=== PATIENT | male | born 1980 | race Hispanic/Latino ===

== ENCOUNTER 2024-10-29 07:25 | Observation (INO) | payer OTHER ==
[~2024-10-29] VITALS: Ht 185.4 cm; Wt 90.3 kg
[2024-10-29 07:52] LABS: APPEARANCE,URINE CLOUDY (CLEAR); GLUCOSE, URINE (UA) NEGATIVE (NEGATIVE); LEUKOCYTE ESTERASE ,URINE NEGATIVE Leu/uL (NEGATIVE); NITRATE,URINE NEGATIVE (NEGATIVE); OCCULT BLOOD,URINE NEGATIVE (NEGATIVE)
[2024-10-29] MEDS: FAMOTIDINE 20MG VIAL IV ONE (07:56)
[2024-10-29 07:59] LABS: IMMATURE GRANULOCYTE ABSOLUTE 0.03 K/uL (0-1); NUCLEATED RED BLOOD CELLS 0.0 % (0.0-0.19); PLATELET COUNT (AUTO) 254 K/uL (130-400); RED BLOOD CELL COUNT(AUTO) 5.40 MIL/uL (4.50-6.20); RED CELL DISTRIBUTION WIDTH 12.5 % (11.0-15.5); WHITE BLOOD COUNT (AUTO) 8.7 K/uL (4.8-10.8)
[2024-10-29] MEDS: 0.9%NACL 1000ML 1,000 ML IV ONE (08:04)
[2024-10-29 08:05] LABS: UNCLASSIFIED CRYSTAL 2 /HPF (None Seen)
[2024-10-29 08:11] LABS: INR 1.04 (0.85-1.15)
[2024-10-29 08:14] LABS: ASPARTATE AMINOTRANSFERASE 16.0 U/L (10-37); CREATININE 0.7 mg/dL (0.5-1.3); GLOMERULAR FILTR. RATE CALC 117.0 mL/min (>90); GLUCOSE,RANDOM 108.0 mg/dL (70-105); SODIUM SERUM 138.0 mmol/L (136-145); TOTAL PROTEIN, SERUM 6.9 g/dL (6.0-8.3); UREA NITROGEN, BLOOD 8.0 mg/dL (7-18)
[2024-10-29] MEDS ORDERED: IOHEXOL-350 75 ML VIAL IV ONE (08:49)
--- NOTE | 2024-10-29 10:07 | HMCIMG ---
EXAM: CT Abdomen and Pelvis with and without IV contrast CLINICAL HISTORY: RUQ and epigastric pain TECHNIQUE: Axial computed tomography images of the abdomen and pelvis with and without intravenous contrast. CONTRAST: with and without intravenous contrast. COMPARISON: None provided. FINDINGS: LUNG BASES: The lung bases appear clear. No pleural effusions are seen. LIVER: Unremarkable. GALLBLADDER AND BILE DUCTS: Dilated GB measuring 12.6x 4.2 cms with a calculus measuring 22 x 12 mm in the region of the neck. No adjacent fluid collection. No biliary ductal dilatation is evident. PANCREAS: Unremarkable. SPLEEN: Unremarkable. ADRENAL GLANDS: Unremarkable. KIDNEYS, URETERS, AND BLADDER: The kidneys sizes appear within normal limits. There is no hydronephrosis or hydroureter. A tiny 2mm calculus in the upper calyx of the right kidney. STOMACH AND BOWEL: Unremarkable appearance of the stomach and bowel. No evidence of bowel obstruction. No evidence suggesting enteritis or colitis. APPENDIX: No evidence of acute appendicitis on CT examination. PERITONEUM: No free fluid. No free air. LYMPH NODES: No lymphadenopathy is evident. REPRODUCTIVE: Prostate calcifications are evident. Mild prostatic hypertrophy. VASCULATURE: No evidence of abdominal aortic aneurysm. BONES: No aggressive appearing osseous lesion. No acute osseous pathology evident. IMPRESSION: Dilated gallbladder measuring 12.6x 4.2 cms with a calculus measuring 22 x 12 mm in the region of the neck, probably impacted. Recommend ultrasound correlation. Tiny right renal calculus. /Megan
--- NOTE | 2024-10-29 10:15 | HMCIMG ---
EXAM: US Abdomen, Right Upper Quadrant. CLINICAL HISTORY: Presents with right upper quadrant pain TECHNIQUE: Right upper quadrant sonography performed with image documentation. COMPARISON: Ultrasound of the abdomen dated 03/21/2016 FINDINGS: LIVER: Enlarged in size measuring 16.7 cm with increased echogenicity. Hepatopetal flow in the main portal vein. Measuring 24 cm/sec. GALLBLADDER: Calculus measuring 1.2 cm in the neck of the gallbladder. The gallbladder is distended, measuring up to 12.0 cm. Currently there is normal wall thickness of 0.2 cm. No pericholecystic free fluid. COMMON BILE DUCT: No dilation. Measures 5 mm PANCREAS: The visualized pancreas appears within normal limits. The distal pancreas is obscured by bowel gas. RIGHT KIDNEY: Measures 12.3 x 4.4 x 5.6 cm in craniocaudal, jacqueline-posterior and transverse dimensions Unremarkable. Normal renal contours. No hydronephrosis. Calculus measuring 3.3 mm in the mid calyx of right kidney. IMPRESSION: Impacted gallstone with markedly distended gallbladder, concerning for early acute cholecystitis. Recommend a hepatobiliary (HIDA) scan for further evaluation. Hepatomegaly with features of hepatic steatosis. Right renal calculus. /Megan
--- NOTE | 2024-10-29 10:27 | ERN ---
General Chief Complaint: Abdominal Pain Stated Complaint: ABDOMINAL PAIN Time Seen by MD: 07:26 History of Present Illness Initial Comments 44-year-old male came in for right upper quadrant pain started earlier today. Patient otherwise has no concerns. Allergies: Coded Allergies: No Known Drug Allergies (Unverified Allergy, Unknown, 10/29/24) Past Medical History Past Medical History: No Pertinent History Past Surgical History: None ROS Dictation Abdominal pain Physical Exam Physical Exam Dictation That has tenderness on palpation in right upper quadrant with no rebound tenderness. Results Laboratory and Microbiology Lab and Micro Result Laboratory Tests Test 10/29/24 07:42 10/29/24 07:50 Urine Color YELLOW (YELLOW) Urine Appearance CLOUDY (CLEAR) H Urine pH 8.0 (5.0-8.0) Urine Specific [place] 1.026 (1.001-1.031) Urine Protein NEGATIVE mg/dL (NEGATIVE) Urine Glucose (UA) NEGATIVE mg/dL (NEGATIVE) Urine Ketones NEGATIVE mg/dL (NEGATIVE) Urine Occult Blood NEGATIVE (NEGATIVE) Urine Nitrate NEGATIVE (NEGATIVE) Urine Bilirubin NEGATIVE mg/dL (NEGATIVE) Urine Urobilinogen 0.2 mg/dL (0.2-1.0) Urine Leukocyte Esterase NEGATIVE Michael/uL Urine RBC 6-10 /HPF (0-1) H Urine WBC 0-1 /HPF (0-1) Urine Other Crystals (Auto) 2 /HPF (None Seen) Urine Amorphous Crystals (Auto) RARE /LPF (None Seen) Urine Bacteria RARE /HPF (None Seen) White Blood Count 8.7 K/uL (4.8-10.8) Red Blood Count 5.40 MIL/uL (4.50-6.20) Hemoglobin 16.1 g/dL (14.0-18.0) Hematocrit 46.7 % (42-54) Mean Corpuscular Volume 86.5 fL (79-99) Mean Corpuscular Hemoglobin 29.8 pg (27.0-33.0) Mean Corpuscular Hemoglobin Concent 34.5 g/dL (32.0-36.0) Red Cell Distribution Width 12.5 % (11.0-15.5) Platelet Count 254 K/uL (130-400) Mean Platelet Volume 9.7 fL (7.5-10.5) Immature Granulocyte % (Auto) 0.3 % (0-1) Neutrophils (%) (Auto) 83.2 % (40.0-77.0) H Lymphocytes (%) (Auto) 11.4 % (21.0-51.0) L Monocytes (%) (Auto) 4.6 % (3.0-13.0) Eosinophils (%) (Auto) 0.2 % (0.0-8.0) Basophils (%) (Auto) 0.3 % (0.0-5.0) Neutrophils # (Auto) 7.2 K/uL (1.8-7.7) Lymphocytes # (Auto) 1.0 K/uL (1.0-4.8) Monocytes # (Auto) 0.4 K/uL (0.1-1.0) Eosinophils # (Auto) 0.02 K/uL (0.00-0.70) Basophils # (Auto) 0.03 K/uL (0.00-0.20) Absolute Immature Granulocyte (auto 0.03 K/uL (0-1) Nucleated Red Blood Cells 0.0 % (0.0-0.19) Prothrombin Time 11.0 SEC (9.6-11.6) Prothromb Time International Ratio 1.04 (0.85-1.15) Activated Partial Thromboplast Time 29.3 SEC (26.3-35.5) Sodium Level 138 mmol/L (136-145) Potassium Level 3.6 mmol/L (3.5-5.1) Chloride Level 103 mmol/L (101-111) Carbon Dioxide Level 29 mmol/L (21-32) Blood Urea Nitrogen 8 mg/dL (7-18) Creatinine 0.7 mg/dL (0.5-1.3) Glomerular Filtration Rate Calc 117 mL/min (>90) Random Glucose 108 mg/dL (70-105) H Lactic Acid Level 1.7 mmol/L (0.8-2.5) Total Calcium 8.8 mg/dL (8.5-10.1) Total Bilirubin 1.8 mg/dL (0.2-1.0) H Direct Bilirubin 0.3 mg/dL (0.0-0.3) Aspartate Amino Transf (AST/SGOT) 16 U/L (10-37) Alanine Aminotransferase (ALT/SGPT) 24 U/L (12-78) Alkaline Phosphatase 47 U/L (50-136) L Troponin I High Sensitivity 4 ng/L (4-75) Total Protein 6.9 g/dL (6.0-8.3) Albumin 4.0 g/dL (3.5-5.0) Lipase 60 U/L (16-77) Procalcitonin < 0.05 ng/mL (0.05-0.5) L MDM MDM: Differential diagnosis: Rationale: Tests considered and ordered secondary to shared decision making include: Previous outside records reviewed: Old ER visits. Risk of complication and/or morbidity or mortality of patient management: None Medications-Per medication reconciliation Need for hospitalization: Patient does meet criteria for hospitalization. Need for emergency major/minor surgery: No There are no social concerns with this patient. Prescription drug management Prescriptions will include symptomatic care Patient's prior external medical records from other ER visits were reviewed by me as indicated. Prior testing and results from previous visits were reviewed. Prior tests were taken into account with medical decision making and resource utilization, independent historian/historians were used to obtain complete medical history. I independently interpreted the test that were performed, results were reviewed by me and considered findings on radiology if ordered. Medical management and examination interpretation discussions were had by me with other qualified healthcare professionals as indicated for the patient's care. ED Course Orders Procedure Category Date Status Time 12 Lead Ekg Tracing- EKG 10/29/24 Logged Technical 07:26 Cbc With Differential LAB 10/29/24 Complete 07:26 Basic Metabolic Panel LAB 10/29/24 Complete 07:26 Hepatic Function Panel LAB 10/29/24 Complete 07:26 Lactic Acid LAB 10/29/24 Complete 07:26 Lipase LAB 10/29/24 Complete 07:26 Procalcitonin LAB 10/29/24 Complete 07:26 Pt And Ptt LAB 10/29/24 Complete 07:26 Troponin I High LAB 10/29/24 Complete Sensitivity 07:26 Urinalysis LAB 10/29/24 Complete W/Microscopic 07:26 Ondansetron 4mg Inj PHA 10/29/24 Complete (Zofran 4mg Inj) 07:30 Famotidine 20mg Vial PHA 10/29/24 Complete (Pepcid 20mg Vial) 07:30 Morphine 2mg Syg PHA 10/29/24 Complete (Morphine 2mg Syg) 07:30 Ct Abdomen/Pelvis CT 10/29/24 Resulted W/Wo Contras 07:51 0.9%Nacl 1000ml (Ns PHA 10/29/24 Complete 1000ml) 08:00 Us Abdominal Ruq\Ltd US 10/29/24 Resulted 08:44 Hydromorphone 1 Mg PHA 10/29/24 Complete Inj (Dilaudid 1mg Inj 09:00 Iohexol (Omnipaque) PHA 10/29/24 Complete 08:49 Current Medications Medications (Trade) Dose Ordered Sig/Trevon Route PRN Reason Start Time Stop Time Status Last Admin Dose Admin Famotidine (Pepcid 20mg Vial) 20 mg ONCE ONCE IV 10/29/24 07:30 10/29/24 07:33 DC 10/29/24 07:56 Hydromorphone HCl (DiLAUDid 1MG INJ) 1 mg ONCE ONCE IVP 10/29/24 09:00 10/29/24 09:01 DC 10/29/24 09:47 Iohexol (Omnipaque) 75 ml STK-MED ONCE IV 10/29/24 08:49 10/29/24 08:50 DC Morphine Sulfate (morPHINE 2MG SYG) 2 mg ONCE ONCE IVP 10/29/24 07:30 10/29/24 07:33 DC 10/29/24 07:57 Ondansetron HCl (zoFRAN 4MG INJ) 4 mg ONCE ONCE IVP 10/29/24 07:30 10/29/24 07:33 DC 10/29/24 07:56 Sodium Chloride 1,000 ml @ 0 mls/hr ONCE ONCE IV 10/29/24 08:00 10/29/24 08:01 DC 10/29/24 08:04 Vital Signs Date Time Temp Pulse Resp B/P (MAP) Pulse Ox O2 Delivery O2 Flow Rate FiO2 10/29/24 10:02 97.9 64 18 135/80 100 Room Air* 0 21 10/29/24 08:59 97.9 79 16 127/62 100 Room Air* 0 21 10/29/24 07:31 97.9 63 16 132/86 100 Room Air* 0 21 10/29/24 07:26 100.0 63 16 132/86 100 Room Air 0 DX & DISP Disposition: Inpatient Departure Impression: Primary Impression: Cholelithiasis Additional Impression: Cholecystitis Condition: Stable Referrals: SELF,REFERRAL (PCP) NETTA PAULINO MD Oct 29, 2024 10:27
--- NOTE | 2024-10-29 10:39 | HP ---
[facility] HISTORY AND PHYSICAL Date of Service: Oct 29, 2024 Time of Service: 10:33 HISTORY OF PRESENT ILLNESS: [ ] Admission date 10/29/2024 Chief complaint right upper quad pain PCP self referral This is a 44-year-old male presents in ED with chief complaints of abdominal pain. Onset started earlier this morning 1:00 a.[address]. location right upper quad state 10/10 on pain scale severity severe aggravating factors p.o. intake aggravating factors none associated symptoms reports nausea and vomiting. Denies fever chills diarrhea. the patient reports being on Wegovy weekly: dose has been decreased: He reports has be on Wegovy for over a year: patient use to weigh 318 pounds down to 197pounds over in one year. He reports he is off of medication for diabetes hypertension and hyperlipidemia. ER workup was consistent with acute cholecystitis with stone to the neck of gallbladder. Gen eral surgeon consulted REVIEW OF SYSTEMS A 12 point ROS obtained all relevant positive documented otherwise ROS negative PAST MEDICAL HISTORY: [ ] Diabetes hyperlipidemia hypertension PAST SURGICAL HISTORY: [ ] None PAST SOCIAL HISTORY: [ ] Denies smoking tobacco products and alcohol use FAMILY HISTORY: [ ] Noncontributory Coded Allergies: No Known Drug Allergies (Unverified Allergy, Unknown, 10/29/24) PHYSICAL EXAM GENERAL APPEARANCE: The patient is awake, alert, and oriented, in no acute cardiopulmonary distress. NEUROLOGICAL: Cranial nerves II-XII grossly intact. Motor is 5/5 in bilateral upper and lower extremities proximal to distal. No sensory deficits. HEENT: Face is symmetric. Pupils are equal and reactive. Extraocular movements are intact. NECK: Supple. No JVD. No thyromegaly. No submental, submandibular, pre- /postauricular, occipital or supraclavicular lymphadenopathy. CHEST: Normal chest expansion. No Telemetry. LUNGS: Absence of any rales, rhonchi or any wheezing. CARDIOVASCULAR: Regular. S1 and S2 normal. No appreciable rubs, murmurs or gallops. ABDOMEN: Soft, nontender, and nondistended. There is no rebound, voluntary gu arding, or rigidity. : Deferred. No Hassan. EXTREMITIES: Non-edematous and not cyanotic. No clubbing. Good capillary refill. SKIN: No skin breakdown. Vital Sign (Last 24 Hours) 10/29/24 10:02 Temp 97.9 Pulse 64 Resp 18 B/P (MAP) 135/80 Pulse Ox 100 O2 Delivery Room Air* O2 Flow Rate 0 FiO2 21 LABS: Laboratory: Test 10/29/24 07:50 10/29/24 07:42 Range/Units White Blood Count 8.7 4.8-10.8 K/uL Red Blood Count 5.40 4.50-6.20 MIL/uL Hemoglobin 16.1 14.0-18.0 g/dL Hematocrit 46.7 42-54 % Mean Corpuscular Volume 86.5 79-99 fL Mean Corpuscular Hemoglobin 29.8 27.0-33.0 pg Mean Corpuscular Hemoglobin Concent 34.5 32.0-36.0 g/dL Red Cell Distribution Width 12.5 11.0-15.5 % Platelet Count 254 130-400 K/uL Mean Platelet Volume 9.7 7.5-10.5 fL Immature Granulocyte % (Auto) 0.3 0-1 % Neutrophils (%) (Auto) 83.2 H 40.0-77.0 % Lymphocytes (%) (Auto) 11.4 L 21.0-51.0 % Monocytes (%) (Auto) 4.6 3.0-13.0 % Eosinophils (%) (Auto) 0.2 0.0-8.0 % Basophils (%) (Auto) 0.3 0.0-5.0 % Neutrophils # (Auto) 7.2 1.8-7.7 K/uL Lymphocytes # (Auto) 1.0 1.0-4.8 K/uL Monocytes # (Auto) 0.4 0.1-1.0 K/uL Eosinophils # (Auto) 0.02 0.00-0.70 K/uL Basophils # (Auto) 0.03 0.00-0.20 K/uL Absolute Immature Granulocyte (auto 0.03 0-1 K/uL Nucleated Red Blood Cells 0.0 0.0-0.19 % Prothrombin Time 11.0 9.6-11.6 SEC Prothromb Time International Ratio 1.04 0.85-1.15 Activated Partial Thromboplast Time 29.3 26.3-35.5 SEC Sodium Level 138 136-145 mmol/L Potassium Level 3.6 3.5-5.1 mmol/L Chloride Level 103 101-111 mmol/L Carbon Dioxide Level 29 21-32 mmol/L Blood Urea Nitrogen 8 7-18 mg/dL Creatinine 0.7 0.5-1.3 mg/dL Glomerular Filtration Rate Calc 117 >90 mL/min Random Glucose 108 H 70-105 mg/dL Lactic Acid Level 1.7 0.8-2.5 mmol/L Total Calcium 8.8 8.5-10.1 mg/dL Total Bilirubin 1.8 H 0.2-1.0 mg/dL Direct Bilirubin 0.3 0.0-0.3 mg/dL Aspartate Amino Transf (AST/SGOT) 16 10-37 U/L Alanine Aminotransferase (ALT/SGPT) 24 12-78 U/L Alkaline Phosphatase 47 L 50-136 U/L Troponin I High Sensitivity 4 4-75 ng/L Total Protein 6.9 6.0-8.3 g/dL Albumin 4.0 3.5-5.0 g/dL Lipase 60 16-77 U/L Procalcitonin < 0.05 L 0.05-0.5 ng/mL Urine Color YELLOW YELLOW Urine Appearance CLOUDY H CLEAR Urine pH 8.0 5.0-8.0 Urine Specific [place] 1.026 1.001-1.031 Urine Protein NEGATIVE NEGATIVE mg/dL Urine Glucose (UA) NEGATIVE NEGATIVE mg/dL Urine Ketones NEGATIVE NEGATIVE mg/dL Urine Occult Blood NEGATIVE NEGATIVE Urine Nitrate NEGATIVE NEGATIVE Urine Bilirubin NEGATIVE NEGATIVE mg/dL Urine Urobilinogen 0.2 0.2-1.0 mg/dL Urine Leukocyte Esterase NEGATIVE NEGATIVE Michael/uL Urine RBC 6-10 H 0-1 /HPF Urine WBC 0-1 0-1 /HPF Urine Other Crystals (Auto) 2 None Seen /HPF Urine Amorphous Crystals (Auto) RARE None Seen /LPF Urine Bacteria RARE None Seen /HPF DIAGNOSTICS / RADIOLOGY: [ ] ASSESSMENT: Acute cholecystitis POA Impacted gallstone with markedly distended gallbladder, POA Intractable abdominal pain requiring IV pain medication POA PLAN: Admit: Medical-surgical floor condition: Guarded Status: Full code Diet NPO IVF: NS at 75 mL/hour Consultants general surgeon Antibiotics: Rocephin 1 g IV 24 hours Imaging HIDA scan Labs cbc, cmp, mag+ Replace electrolytes as needed as per protocol to keep potassium above 4.0 magnesium 2.0. Home medications pending to be reviewed by RN nurse. PRN: MEDICATIONS Tylenol 650 mg po every 4 hrs for fever zofran 4 mg IV every 6 hrs for n/v Hydralazine 5 mg IV every 4 hrs systolic pressure > 160 bowel regiment: lactulose 20 gm PO BID PRN constipation Pain management: Morphine 2 mg IV every 4 hours as needed for pain Supportive measures: DVT ppx, GI ppx all questions answered time spent: > 35 min Supervising MD: Dr. Hough c/d This document was generated in part using voice recognition software, occasional wrong word or sound alike substitutions may have occurred due to the inherent limitations of voice recognition software. Read the chart carefully and recognize using context, where the substitutions have occurred. Although every effort was made to edit the content, recruitment assistant and typing errors may occur ADVANCED CARE PLANNING 1. Which of the following were discussed? Hospice Care - Yes / No Therapeutic options - Yes / No Advance Directives - Yes / No Other discussions - 2. Discussed with who? 3. Voluntary nature of this service was explained to the patient? Yes / No 4. Amount of time spent - 5. Reviewed by Physician? (if this service was performed by NPP) Yes / No ATTESTATION BY PHYSICIAN I have seen and examined the patient. I reviewed the documentation, medical decision making, and treatment plan as noted by the mid-level provider above. I agree with the findings and plan of care. ISMAEL HOUGH MD, ELIZABETH SONOGRAPHY TECHNOLOGIST Oct 29, 2024 10:39
[2024-10-29] MEDS ORDERED: MAGNESIUM 2GM PREMIX 50ML 50 ML IV PRN (11:00)
--- NOTE | 2024-10-29 11:00 | NUR ---
PT STATES HE HAS CLAUSTROPHOBIA AND ENCLOSED SPACES MAKE HIM VERY ANXIOUS.
--- NOTE | 2024-10-29 11:28 | NUR ---
GAVE REPORT TO NURSE AYO
[2024-10-29] MEDS: 0.9%NACL 1000ML 1,000 ML IV SCH (11:42)
[2024-10-29 12:15] VITALS: O2SAT 97
[2024-10-29 16:00] VITALS: BP 128/79; PULSE 60; RESP 19; TEMP 98.1
--- NOTE | 2024-10-29 19:05 | HMCIMG ---
Examination Hepatobiliary study History acute cholecystis (Hx) / acute cholecystis, Dynamic (DICOM Hx) (DICOM Hx) Technique Tc-99m mebrofenin were administered intravenously followed by acquisition of planar images of the abdomen. Findings Following administration of radiotracer, there is prompt appearance of normal hepatic contours, followed by appearance of activity in unremarkable appearing bile ducts. There is nonvisualization of the gallbladder reflecting acute cholecystitis. IMPRESSION: There is nonvisualization of the gallbladder reflecting acute cholecystitis. /[place]
[2024-10-29] MEDS ORDERED: ALPR0.5T8 PO (19:15)
[2024-10-29 19:40] VITALS: O2SAT 97
--- NOTE | 2024-10-29 19:40 | NUR ---
MEDS SHIFT ASSESSMENT DONE, PLEASE REFER TO CHART. PT CLAIMS OF ABDOMINAL PAINS. MORPHINE ADMINISTERED FOR PAIN. RE-STARTED IVF OF NS REGULATED AT 75CC/HR. STARTED ON POTASSIUM IV COVERAGE FOR KCL=3.6. KEPT NPO ORDERED.
[2024-10-29 20:00] VITALS: BP 130/80; PULSE 63; RESP 17; TEMP 98.5
[2024-10-29 21:42] LABS: ASPARTATE AMINOTRANSFERASE 15.0 U/L (10-37); CREATININE 0.7 mg/dL (0.5-1.3); GLOMERULAR FILTR. RATE CALC 117.0 mL/min (>90); GLUCOSE,RANDOM 89.0 mg/dL (70-105); SODIUM SERUM 137.0 mmol/L (136-145); TOTAL PROTEIN, SERUM 5.7 g/dL (6.0-8.3); UREA NITROGEN, BLOOD 5.0 mg/dL (7-18)
--- NOTE | 2024-10-29 21:50 | NUR ---
PAGED PT CALLS AND COMPLAINTS OF ABDOMINAL PAINS. PAGED FRUIT PICKER SENIOR TECHNICAL SUPPORT ANALYST VIA ANSWERING SERVICE. AWAITING CALL BACK.
--- NOTE | 2024-10-29 22:12 | NUR ---
RE-PAGED NO CALL BACK FROM SHEET METAL ASSEMBLER AND RIVETER. RE-PAGED VIA ANSWERING SERVICE. SHEET METAL ASSEMBLER AND RIVETER GERARD ESPAÑA CALLED BACK AT 2220 AND REFERRED PT'S PAIN. NEW MED ORDER RECEIVED, PLEASE REFER TO CPOE. WILL MEDICATE PT.
--- NOTE | 2024-10-29 22:31 | NUR ---
MRCP BLUE LINE OPERATOR FRANCINE INFORMS GLASS LOADING EQUIPMENT TENDER THAT SURGEON WANTED MRCP DONE AND TECH IS ALREADY CALLED TO DO SCAN. CONSENT FOR MRCP SIGNED BY PT AND WITNESSED BY GLASS LOADING EQUIPMENT TENDER. FORM PLACED IN CHART. XANAX PRE MRCP GIVEN PT IS CLAUSTROPHOBIC. AWAITING SHOT PEENING OPERATOR TO DO SCAN.
--- NOTE | 2024-10-29 22:47 | NUR ---
MRCP PT WHEELED DOWN BY PCP TO MRI FOR SCAN.
--- NOTE | 2024-10-29 23:15 | NUR ---
REFUSED INCOME TAX MANAGER CALLED FROM RADIOLOGY THAT PT IS REFUSING MRCP AT THIS TIME. COMMERCIAL LITIGATION ATTORNEY MADE AWARE AND STATED WILL LET SURGEON KNOW. [employer] MADE AWARE TO BRING PT BACK IN ROOM. AT 2320 PT IS ALREADY WHEELED BACK IN ROOM BY [employer]. REFUSAL FORM SIGNED BY PT AND WITNESSED BY DIE ATTACHING MACHINE TENDER. FORM PLACED IN CHART. MEDICATED WITH MORPHINE IV FOR ABDOMINAL PAINS AND RE-STARTED IVF OF NS AND POTASSIUM IV INFUSION. KEPT NPO ORDERED. KEPT COMFORTABLE IN BED WITH HOB ELEVATED. WILL RE-ASSESS PT.
[2024-10-30] VITALS (26 sets, daily range): BP systolic 110–137; BP diastolic 55–80; PULSE 67–96; RESP 13–21; TEMP 97.6–98.9; O2SAT 97
--- NOTE | 2024-10-30 05:31 | NUR ---
ROUNDS PT SLEPT AT INTERVALS DURING THE SHIFT. NO DISTRESS NOTED AT THIS TIME. KEPT COMFORTABLE IN BED. KEPT NPO. CALL LIGHT WITHIN REACH. FOR MORE CARE.
[2024-10-30 06:38] LABS: ASPARTATE AMINOTRANSFERASE 15.0 U/L (10-37); CREATININE 0.8 mg/dL (0.5-1.3); GLOMERULAR FILTR. RATE CALC 112.0 mL/min (>90); GLUCOSE,RANDOM 105.0 mg/dL (70-105); SODIUM SERUM 135.0 mmol/L (136-145); TOTAL PROTEIN, SERUM 5.8 g/dL (6.0-8.3); UREA NITROGEN, BLOOD 6.0 mg/dL (7-18)
--- NOTE | 2024-10-30 07:29 | EKG ---
[facility] Test Date: 2024-10-29 Test Time: 07:38:06 Pat Name: ANURADHA ZAMORA Department: [facility] Room: 314 1 Gender: M Logistics Solution Manager: [id number] : 1980 Requested By: NETTA PAULINO Order Number: [id number] Reading MD: July Vital Measurements Intervals Burns Rate: 66 P: -48 OR: 174 QRS: 82 QRSD: 108 T: 11 QT: 376 QTc: 395 Interpretive Statements Ectopic atrial rhythm Compared to ECG 03/21/2016 08:08:13 Ectopic atrial rhythm now present Sinus rhythm no longer present Electronically Signed On 10-31-2024 15:07:09 CDT by July Vital Please click the below link to view image of tracing.
[2024-10-30] MEDS ORDERED: IOHEXOL-350 50ML VIAL IV ONE (09:55)
[2024-10-30] MEDS ORDERED: LIDOCAINE HCL MPF 1% 5ML VIAL ONE (10:11)
[2024-10-30] MEDS ORDERED: MIDAZOLAM HCL 1 MG/ML 2ML VIAL ONE (10:12)
[2024-10-30] MEDS ORDERED: GLYCOPYRROLATE 0.2 MG/ML 5 ML VIAL ONE (10:12)
[2024-10-30] MEDS ORDERED: SUCCINYLCHOLINE CHLORIDE 20 MG/ML 10 ML VIAL ONE (10:12)
[2024-10-30] MEDS ORDERED: NEOSTIGMINE METHYLSULFATE 1MG/ML IV ONE (10:12)
[2024-10-30] MEDS: INDOCYANINE GREEN 25 MG VIAL IJ ONE (10:15)
--- NOTE | 2024-10-30 10:25 | CONS ---
GENERAL SURGERY CONSULTATION NOTE DATE OF CONSULTATION: Oct 30, 2024 TIME OF CONSULTATION: 10:22 CONSULTING SERVICE: Vero Yee MD REQUESTING PHYSICAIN: [ ] REASON FOR CONSULTATION: [ ] HISTORY OF PRESENT ILLNESS: 44-year-old male started with the acute onset of abdominal pain epigastric and right upper quadrant on tolerable and came into the ER found to have acute cholecystitis. He has had elevated bilirubin and going higher. Attempted to do the MRCP but he could not tolerate it. PAST MEDICAL HISTORY: Anxiety PAST SURGICAL HISTORY: None FAMILY HISTORY: [ ] SOCIAL HISTORY: Denies any tobacco, EtOH or any illicit drug use Current Medications Medications (Trade) Dose Ordered Sig/Trevon Route Start Time Stop Time Status Last Admin Dose Admin Ceftriaxone Sodium (ROCEphine 1G INJ) 1 gm Q24H IVPB 10/30/24 11:00 11/09/24 10:59 Insulin Human Regular (humuLIN R 100 UNIT/ML 3ML) INSULIN SLIDING SCAL... ACHS SQ 10/29/24 11:30 10/30/24 03:25 DC Insulin Human Regular (humuLIN R 100 UNIT/ML 3ML) INSULIN SLIDING SCAL... Q6H6 SQ 10/30/24 06:00 11/29/24 05:59 Sodium Chloride 1,000 ml @ 75 mls/hr [id number] IV 10/29/24 11:00 11/28/24 10:59 10/30/24 03:16 75 MLS/HR Allergies: Coded Allergies: No Known Drug Allergies (Unverified Allergy, Unknown, 10/29/24) REVIEW OF SYSTEMS: PALEOBOTANIST: [Denies headaches or blurring of vision.] RESP: [No cough, chest pain or SOB.] CVS: [No palpitaions.] GI: As per HPI Musculoskeletal: [No swelling or joint pain.] BACK: [No pain or swelling.] All other systems are reviewed and essentially negative pertinent positives in HPI. PHYSICAL EXAMINATION: GENERAL: [Patient is lying comfortably in bed, not in any obvious distress.] HEAD: [Normal with no signs of head trauma.] EYES: [Not pale not jaundiced NECK: Trachea midline LUNGS: No respiratory distress HEART: [Regular rate and rhythm. ABD: [Bowel sounds present,soft, RUQ tender, no masses, no organomegaly. EXT: [ Warm soft, non tender.] SKIN: [ No rashes or lesions.] NEURO: [ Awake Alert and oriented x3.] Vital Signs (last 8hr) Date Time Temp Pulse Resp B/P (MAP) Pulse Ox O2 Delivery O2 Flow Rate FiO2 10/30/24 07:52 99.0 79 18 130/73 97 Room Air 10/30/24 04:00 98.4 96 17 137/76 96 Room Air 21 LABORATORY: [ ] Hematology Labs: Test 10/29/24 07:50 Range/Units White Blood Count 8.7 4.8-10.8 K/uL Red Blood Count 5.40 4.50-6.20 MIL/uL Hemoglobin 16.1 14.0-18.0 g/dL Hematocrit 46.7 42-54 % Mean Corpuscular Volume 86.5 79-99 fL Mean Corpuscular Hemoglobin 29.8 27.0-33.0 pg Mean Corpuscular Hemoglobin Concent 34.5 32.0-36.0 g/dL Red Cell Distribution Width 12.5 11.0-15.5 % Platelet Count 254 130-400 K/uL Mean Platelet Volume 9.7 7.5-10.5 fL Immature Granulocyte % (Auto) 0.3 0-1 % Neutrophils (%) (Auto) 83.2 H 40.0-77.0 % Lymphocytes (%) (Auto) 11.4 L 21.0-51.0 % Monocytes (%) (Auto) 4.6 3.0-13.0 % Eosinophils (%) (Auto) 0.2 0.0-8.0 % Basophils (%) (Auto) 0.3 0.0-5.0 % Neutrophils # (Auto) 7.2 1.8-7.7 K/uL Lymphocytes # (Auto) 1.0 1.0-4.8 K/uL Monocytes # (Auto) 0.4 0.1-1.0 K/uL Eosinophils # (Auto) 0.02 0.00-0.70 K/uL Basophils # (Auto) 0.03 0.00-0.20 K/uL Absolute Immature Granulocyte (auto 0.03 0-1 K/uL Nucleated Red Blood Cells 0.0 0.0-0.19 % Chemistry Labs: Test 10/30/24 06:12 10/30/24 05:38 10/29/24 07:50 Range/Units Sodium Level 135 L 136-145 mmol/L Potassium Level 4.0 3.5-5.1 mmol/L Chloride Level 102 101-111 mmol/L Carbon Dioxide Level 29 21-32 mmol/L Blood Urea Nitrogen 6 L 7-18 mg/dL Creatinine 0.8 0.5-1.3 mg/dL Glomerular Filtration Rate Calc 112 >90 mL/min Random Glucose 105 70-105 mg/dL Total Calcium 8.1 L 8.5-10.1 mg/dL Total Bilirubin 2.8 #H 0.2-1.0 mg/dL Aspartate Amino Transf (AST/SGOT) 15 10-37 U/L Alanine Aminotransferase (ALT/SGPT) 21 12-78 U/L Alkaline Phosphatase 48 L 50-136 U/L Total Protein 5.8 L 6.0-8.3 g/dL Albumin 3.1 L 3.5-5.0 g/dL Whole Blood Glucose 110 70-110 MG/DL Lactic Acid Level 1.7 0.8-2.5 mmol/L Direct Bilirubin 0.3 0.0-0.3 mg/dL Troponin I High Sensitivity 4 4-75 ng/L Lipase 60 16-77 U/L Procalcitonin < 0.05 L 0.05-0.5 ng/mL Coagulation Labs: Test 10/29/24 07:50 Range/Units Prothrombin Time 11.0 9.6-11.6 SEC Prothromb Time International Ratio 1.04 0.85-1.15 Activated Partial Thromboplast Time 29.3 26.3-35.5 SEC DIAGNOSTICS / RADIOLOGY: [Copy/Paste Echos/Imaging Report here] ASSESSMENT: Acute cholecystitis and elevated bilirubin PLAN: NPO/IVF/IV ANTIOBIOTICS Schedule for OR We talked about various treatment options including but not limited to surgery. We talked about risks and benefits of surgery, patient verbalized understanding has agreed to proceed robotic cholecystectomy with intraoperative IOC. We will schedule surgery for today. YUNI BANSAL MD Oct 30, 2024 10:25
--- NOTE | 2024-10-30 12:03 | OP ---
Operative Note: DATE OF PROCEDURE: 10/30/24 PROCEDURE PERFORMED: Robotic cholecystectomy with intraoperative cholangiogram PREOPERATIVE DIAGNOSIS: Acute cholecystitis with elevated bilirubin POSTOPERATIVE DIAGNOSIS: same, no filling defects of the common bile duct ANESTHESIA: General endotracheal. SURGEON: Yuni Tavares MD DEVICE LEFT IN PLACE: None. FLUIDS AND BLOOD PRODUCTS: Per anesthesia report. SPECIMENS REMOVED: Gallbladder. COMPLICATIONS: None immediate. PATIENT CONDITION: Stable. Blood loss: Minimal DESCRIPTION OF PROCEDURE: The patient was brought to the operating room and placed on the operating table in a supine position. Once general endotracheal anesthesia was achieved the patient's abdomen is prepped and draped in sterile fashion. Had then proceeded to create a transverse incision at the left upper quadrant at rodriguez's point and under direct visualization went through the abdominal wall with a 5 mm Optiview entered the abdominal cavity and obtain a pneumoperitoneum. After obtaining pneumoperitoneum we placed under direct visualization to 8 mm trocars one in the far right flank and the other one in the right lower abdomen. I then switched out the 5 mm trocar in the left upper quadrant for 8 mm trocar. And then placed another 8 mm trocar in the left hemiabdomen to the left of the midline through the rectus muscle for the camera. Place the patient in reverse Trendelenburg and rotated to the left. Brought the robot over top of the patient right and docked the robot. There was significant amount of adhesions to the gallbladder that were taken down with the cautery with dissection. I then proceeded to retract the gallbladder from the fundus and infundibulum and started our dissection of the hilum. We bluntly dissected the hilum to expose the cystic duct and cystic artery and once we had a critical view for safety, which was confirmed with firefly technology. We proceeded to place two clips in the cystic artery proximally and distally. We divided the artery. Then proceeded to place a Aviles clamp across the infundibulum and inserted the Aviles catheter into the infundibulum. We checked with saline and make sure there was no leaks. We then proceeded to bring in the C-arm and injected half and a half contrast and saline into the cystic duct and under fluoroscopy live saw the cystic duct common duct and biliary system light up. And the duodenum filled up. No filling defects within the common bile duct. We then proceeded to remove the C-arm. Placed a distal clip on the cystic duct. Removed our Aviles clamp and catheter. And then proceeded to place another clip proximally and distally into the cystic duct and then divided between the clips. We then proceeded to remove the gallbladder off the liver bed using Bovie cautery. Once this was done, we then proceeded to evaluate the liver bed for hemostasis. We made sure there was no bile leaks or any bleeding. I then proceeded to bring the 5 mm Endo-Catch bag through the lateral right port. Placed the gallbladder within the bag and within the bag I proceeded to drain it. We then proceeded to remove the trocar in this area and dilated the muscle with a hemostat and proceeded to remove the gallbladder through this right lateral port. I then closed the muscle with a running 2-0 V lock suture. We then proceeded to undocked our all her instruments and the robot. Removed all the trocars from the abdominal wall confirmed no bleeding. the skin incisions were closed using skin stapler, a sterile dressing was applied. The patient tolerated the procedure well. All counts correct x2 at the end of the procedure YUNI TAVARES MD Oct 30, 2024 12:03
--- NOTE | 2024-10-30 13:38 | PN ---
[facility] PROGRESS NOTE Date of Service: Oct 30, 2024 Time of Service: 13:36 SUBJECTIVE: [ 44-year-old male presents in ED with chief complaints of abdominal pain. Onset started earlier this morning 1:00 a.m. location right upper quad state 10/10 on pain scale severity severe aggravating factors p.o. intake aggravating factors none associated symptoms reports nausea and vomiting. Denies fever chills diarrhea. the patient reports being on Wegovy weekly: dose has been decreased: He reports has be on Wegovy for over a year: patient use to weigh 318 pounds down to 197pounds over in one year. He reports he is off of medication for diabetes hypertension and hyperlipidemia. ER workup was consistent with acute cholecystitis with stone to the neck of gallbladder. 10/30/2024. Patient was seen and examined along with RN. He had his laparoscopic cholecystectomy done today. Day 0 . No new complaints.] REVIEW OF SYSTEMS A 12 point ROS obtained all relevant positive documented otherwise ROS negative PHYSICAL EXAM GENERAL APPEARANCE: The patient is awake, alert, and oriented, in no acute cardiopulmonary distress. NEUROLOGICAL: Cranial nerves II-XII grossly intact. Motor is 5/5 in bilateral upper and lower extremities proximal to distal. No sensory deficits. HEENT: Face is symmetric. Pupils are equal and reactive. Extraocular movements are intact. NECK: Supple. No JVD. No thyromegaly. No submental, submandibular, pre- /postauricular, occipital or supraclavicular lymphadenopathy. CHEST: Normal chest expansion. No Telemetry. LUNGS: Absence of any rales, rhonchi or any wheezing. CARDIOVASCULAR: Regular. S1 and S2 normal. No appreciable rubs, murmurs or gallops. ABDOMEN: Soft nontender surgical site clean.. : Deferred. No Hassan. EXTREMITIES: Non-edematous and not cyanotic. No clubbing. Good capillary refill. SKIN: No skin breakdown. Vital Signs (last 8hr) Date Time Temp Pulse Resp B/P (MAP) Pulse Ox O2 Delivery O2 Flow Rate FiO2 10/30/24 12:52 80 16 137/71 98 Room Air 10/30/24 12:47 88 17 126/80 100 Room Air 10/30/24 12:42 83 16 134/79 99 Room Air 10/30/24 12:37 86 17 122/76 99 Room Air 10/30/24 12:32 94 18 136/75 99 Room Air 10/30/24 12:27 92 17 130/77 100 Nonrebreathing Mask 10.0 10/30/24 12:22 69 15 118/61 100 Nonrebreathing Mask 10.0 10/30/24 12:17 68 14 118/57 100 Nonrebreathing Mask 10.0 10/30/24 12:12 70 15 110/55 100 Nonrebreathing Mask 10.0 10/30/24 12:07 97.5 80 13 119/62 100 Nonrebreathing Mask 10.0 10/30/24 07:52 99.0 79 18 130/73 97 Room Air LABS: Laboratory: Test 10/30/24 06:12 10/30/24 05:38 10/29/24 07:50 10/29/24 07:42 Range/Units Sodium Level 135 L 136-145 mmol/L Potassium Level 4.0 3.5-5.1 mmol/L Chloride Level 102 101-111 mmol/L Carbon Dioxide Level 29 21-32 mmol/L Blood Urea Nitrogen 6 L 7-18 mg/dL Creatinine 0.8 0.5-1.3 mg/dL Glomerular Filtration Rate Calc 112 >90 mL/min Random Glucose 105 70-105 mg/dL Total Calcium 8.1 L 8.5-10.1 mg/dL Total Bilirubin 2.8 #H 0.2-1.0 mg/dL Aspartate Amino Transf (AST/SGOT) 15 10-37 U/L Alanine Aminotransferase (ALT/SGPT) 21 12-78 U/L Alkaline Phosphatase 48 L 50-136 U/L Total Protein 5.8 L 6.0-8.3 g/dL Albumin 3.1 L 3.5-5.0 g/dL Whole Blood Glucose 110 70-110 MG/DL White Blood Count 8.7 4.8-10.8 K/uL Red Blood Count 5.40 4.50-6.20 MIL/uL Hemoglobin 16.1 14.0-18.0 g/dL Hematocrit 46.7 42-54 % Mean Corpuscular Volume 86.5 79-99 fL Mean Corpuscular Hemoglobin 29.8 27.0-33.0 pg Mean Corpuscular Hemoglobin Concent 34.5 32.0-36.0 g/dL Red Cell Distribution Width 12.5 11.0-15.5 % Platelet Count 254 130-400 K/uL Mean Platelet Volume 9.7 7.5-10.5 fL Immature Granulocyte % (Auto) 0.3 0-1 % Neutrophils (%) (Auto) 83.2 H 40.0-77.0 % Lymphocytes (%) (Auto) 11.4 L 21.0-51.0 % Monocytes (%) (Auto) 4.6 3.0-13.0 % Eosinophils (%) (Auto) 0.2 0.0-8.0 % Basophils (%) (Auto) 0.3 0.0-5.0 % Neutrophils # (Auto) 7.2 1.8-7.7 K/uL Lymphocytes # (Auto) 1.0 1.0-4.8 K/uL Monocytes # (Auto) 0.4 0.1-1.0 K/uL Eosinophils # (Auto) 0.02 0.00-0.70 K/uL Basophils # (Auto) 0.03 0.00-0.20 K/uL Absolute Immature Granulocyte (auto 0.03 0-1 K/uL Nucleated Red Blood Cells 0.0 0.0-0.19 % Prothrombin Time 11.0 9.6-11.6 SEC Prothromb Time International Ratio 1.04 0.85-1.15 Activated Partial Thromboplast Time 29.3 26.3-35.5 SEC Lactic Acid Level 1.7 0.8-2.5 mmol/L Direct Bilirubin 0.3 0.0-0.3 mg/dL Troponin I High Sensitivity 4 4-75 ng/L Lipase 60 16-77 U/L Procalcitonin < 0.05 L 0.05-0.5 ng/mL Urine Color YELLOW YELLOW Urine Appearance CLOUDY H CLEAR Urine pH 8.0 5.0-8.0 Urine Specific Allen 1.026 1.001-1.031 Urine Protein NEGATIVE NEGATIVE mg/dL Urine Glucose (UA) NEGATIVE NEGATIVE mg/dL Urine Ketones NEGATIVE NEGATIVE mg/dL Urine Occult Blood NEGATIVE NEGATIVE Urine Nitrate NEGATIVE NEGATIVE Urine Bilirubin NEGATIVE NEGATIVE mg/dL Urine Urobilinogen 0.2 0.2-1.0 mg/dL Urine Leukocyte Esterase NEGATIVE NEGATIVE Michael/uL Urine RBC 6-10 H 0-1 /HPF Urine WBC 0-1 0-1 /HPF Urine Other Crystals (Auto) 2 None Seen /HPF Urine Amorphous Crystals (Auto) RARE None Seen /LPF Urine Bacteria RARE None Seen /HPF Current Medications Medications (Trade) Dose Ordered Sig/Trevon Route PRN Reason Start Time Stop Time Status Last Admin Dose Admin Acetaminophen (TYLenol 325MG TAB) 650 mg Q4H PRN PO TEMPERATURE GREATER THAN 101.5 10/29/24 11:00 11/28/24 10:59 Ceftriaxone Sodium (ROCEphine 1G INJ) 1 gm Q24H IVPB 10/30/24 11:00 11/09/24 10:59 Ibuprofen (moTRIN) 800 mg Q8H PO 10/30/24 13:30 11/29/24 13:29 Insulin Human Regular (humuLIN R 100 UNIT/ML 3ML) INSULIN SLIDING SCAL... ACHS SQ 10/29/24 11:30 10/30/24 03:25 DC Insulin Human Regular (humuLIN R 100 UNIT/ML 3ML) INSULIN SLIDING SCAL... Q6H6 SQ 10/30/24 06:00 11/29/24 05:59 Magnesium Sulfate 50 ml @ 0 mls/hr PROTOCOL PRN IV low mag level 10/29/24 11:00 11/28/24 10:59 Morphine Sulfate (morPHINE 2MG SYG) 2 mg Q4H PRN IVP SEVERE PAIN (7-10) 10/29/24 11:00 11/05/24 10:59 10/30/24 05:44 2 MG Ondansetron HCl (zoFRAN 4MG INJ) 4 mg Q6H PRN IVP NAUSEA/VOMITING 10/29/24 11:00 11/28/24 10:59 Potassium Chloride 100 ml @ 50 mls/hr AD PRN IV POTASSIUM PROTOCOL 10/29/24 11:00 11/28/24 10:59 10/29/24 22:04 50 MLS/HR Sodium Chloride 1,000 ml @ 75 mls/hr [id number] IV 10/29/24 11:00 11/28/24 10:59 10/30/24 03:16 75 MLS/HR DIAGNOSTICS / RADIOLOGY: [ ] ASSESSMENT: Acute cholecystitis POA Impacted gallstone with markedly distended gallbladder, POA Intractable abdominal pain requiring IV pain medication POA PLAN: Patient is status post laparoscopic cholecystectomy. Consultants general surgeon Antibiotics: Rocephin 1 g IV 24 hours PRN: MEDICATIONS Tylenol 650 mg po every 4 hrs for fever zofran 4 mg IV every 6 hrs for n/v Hydralazine 5 mg IV every 4 hrs systolic pressure > 160 bowel regiment: lactulose 20 gm PO BID PRN constipation Pain management: Morphine 2 mg IV every 4 hours as needed for pain Supportive measures: DVT ppx, GI ppx all questions answered ISMAEL URBAN MD Oct 30, 2024 13:38
--- NOTE | 2024-10-30 14:00 | NUR ---
MET W PATIENT AND FAMILY AT BEDSIDE FOR DC PLANNING. DYANA IS EMPLOYED IN THE [employer]; IS ACTIVE, INDEPENDENT OF ADLS' DRIVES, HAS NO DME OR SERVICES. 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 PATIENT AND SPOUSE HAVE RECENTLY MOVED HOMES; ALTERNATE ADDRESS ADDED TO FACE SHEET OF NEW HOME; STILL GETTING MAIL AT OLD ADDRESS SOME TIMES. REVIEWED POST OP EXPECTATION WITH PATIENT - WALK WALK WALK, AND CRITERIA FOR DC NEEDS TO PASS WHIT, TOLERATE FOOD, HAVE BM AND STABLE LABS. VERBALIZED UNDERSTANDING. Addendum: 10/30/24 at 1749 by EBEN SANDERS RN Amended: Links added.
[2024-10-31 04:00] VITALS: BP 117/77; PULSE 79; RESP 20; TEMP 97.9
[2024-10-31 06:16] LABS: NUCLEATED RED BLOOD CELLS 0.0 % (0.0-0.19); PLATELET COUNT (AUTO) 243.0 K/uL (130-400); RED BLOOD CELL COUNT(AUTO) 4.75 MIL/uL (4.50-6.20); RED CELL DISTRIBUTION WIDTH 12.4 % (11.0-15.5); WHITE BLOOD COUNT (AUTO) 11.5 K/uL (4.8-10.8)
[2024-10-31 06:41] LABS: ASPARTATE AMINOTRANSFERASE 19.0 U/L (10-37); CREATININE 0.7 mg/dL (0.5-1.3); GLOMERULAR FILTR. RATE CALC 117.0 mL/min (>90); GLUCOSE,RANDOM 103.0 mg/dL (70-105); SODIUM SERUM 137.0 mmol/L (136-145); TOTAL PROTEIN, SERUM 6.0 g/dL (6.0-8.3); UREA NITROGEN, BLOOD 7.0 mg/dL (7-18)
[2024-10-31 08:00] VITALS: BP 108/68; PULSE 65; RESP 18; TEMP 97.6; O2SAT 98
--- NOTE | 2024-10-31 11:32 | PN ---
Postop day one from cholecystectomy. Passing gas. And tolerating his diet Incisions are clean dry and intact Labs are reviewed and bilirubin trending down Okay to discharge home. No lifting for four weeks. Follow up in the office in 1-2 weeks. Pain medicine at discharge to be given by hospitalist for admitting physician Vitals/Labs Vital Signs Date Time Temp Pulse Resp B/P (MAP) Pulse Ox O2 Delivery O2 Flow Rate FiO2 10/31/24 08:00 97.5 65 18 108/68 98 Room Air 10/30/24 20:00 0 21 Laboratory Tests 10/31/24 05:41 Medications Current Medications Ondansetron HCl 4 mg ONCE ONCE IVP Last administered on 10/29/24at 07:56; Start 10/29/24 at 07:30; Stop 10/29/24 at 07:33; Status DC Famotidine 20 mg ONCE ONCE IV Last administered on 10/29/24at 07:56; Start 10/29/24 at 07:30; Stop 10/29/24 at 07:33; Status DC Morphine Sulfate 2 mg ONCE ONCE IVP Last administered on 10/29/24at 07:57; Start 10/29/24 at 07:30; Stop 10/29/24 at 07:33; Status DC Sodium Chloride 1,000 ml @ 0 mls/hr ONCE ONCE IV Last administered on 10/29/24at 08:04; Start 10/29/24 at 08:00; Stop 10/29/24 at 08:01; Status DC Hydromorphone HCl 1 mg ONCE ONCE IVP Last administered on 10/29/24at 09:47; Start 10/29/24 at 09:00; Stop 10/29/24 at 09:01; Status DC Iohexol 75 ml STK-MED ONCE IV; Start 10/29/24 at 08:49; Stop 10/29/24 at 08:50; Status DC Ceftriaxone Sodium 1 gm ONCE ONCE IVPB Last administered on 10/29/24at 10:39; Start 10/29/24 at 10:30; Stop 10/29/24 at 10:31; Status DC Ondansetron HCl 4 mg Q6H PRN IVP; Start 10/29/24 at 11:00; Stop 11/28/24 at 10:59 Acetaminophen 650 mg Q4H PRN PO; Start 10/29/24 at 11:00; Stop 11/28/24 at 10:59 Ceftriaxone Sodium 1 gm Q24H IVPB Last administered on 10/30/24at 14:00; Start 10/30/24 at 11:00; Stop 11/09/24 at 10:59 Morphine Sulfate 2 mg Q4H PRN IVP Last administered on 10/31/24at 08:58; Start 10/29/24 at 11:00; Stop 11/05/24 at 10:59 Insulin Human Regular INSULIN SLIDING SCAL... ACHS SQ; Start 10/29/24 at 11:30; Stop 10/30/24 at 03:25; Status DC Potassium Chloride 100 ml @ 50 mls/hr AD PRN IV Last administered on 10/29/24at 22:04; Start 10/29/24 at 11:00; Stop 11/28/24 at 10:59 Magnesium Sulfate 50 ml @ 0 mls/hr PROTOCOL PRN IV; Start 10/29/24 at 11:00; Stop 11/28/24 at 10:59 Sodium Chloride 1,000 ml @ 75 mls/hr [id number] IV Last administered on 10/30/24at 22:45; Start 10/29/24 at 11:00; Stop 11/28/24 at 10:59 Alprazolam 0.5 mg ONCE ONCE PO; Start 10/29/24 at 12:00; Stop 10/29/24 at 12:01; Status DC Ketorolac Tromethamine 30 mg ONCE ONCE IVP Last administered on 10/29/24at 12:41; Start 10/29/24 at 12:30; Stop 10/29/24 at 12:31; Status DC Alprazolam 0.5 mg ONCE ONCE PO; Start 10/30/24 at 08:00; Stop 10/29/24 at 22:22; Status DC Morphine Sulfate 2 mg ONCE ONCE IVP Last administered on 10/29/24at 23:21; Start 10/29/24 at 22:30; Stop 10/29/24 at 22:31; Status DC Alprazolam 0.5 mg ONCE ONCE PO Last administered on 10/29/24at 22:31; Start 10/29/24 at 22:30; Stop 10/29/24 at 22:31; Status DC Insulin Human Regular INSULIN SLIDING SCAL... Q6H6 SQ; Start 10/30/24 at 06:00; Stop 11/29/24 at 05:59 Iohexol 50 ml STK-MED ONCE IV; Start 10/30/24 at 09:55; Stop 10/30/24 at 09:55; Status DC Ropivacaine 150 mg STK-MED ONCE .ROUTE; Start 10/30/24 at 10:02; Stop 10/30/24 at 10:03; Status DC Ketamine HCl 50 mg STK-MED ONCE .ROUTE; Start 10/30/24 at 10:03; Stop 10/30/24 at 10:04; Status DC Bupivacaine HCl 5 mg STK-MED ONCE .ROUTE; Start 10/30/24 at 10:06; Stop 10/30/24 at 10:07; Status DC Lidocaine HCl 5 ml STK-MED ONCE .ROUTE; Start 10/30/24 at 10:11; Stop 10/30/24 at 10:12; Status DC Dexamethasone Sodium Phosphate 4 mg STK-MED ONCE .ROUTE; Start 10/30/24 at 10:11; Stop 10/30/24 at 10:12; Status DC Phenylephrine HCl 10 mg STK-MED ONCE IV; Start 10/30/24 at 10:12; Stop 10/30/24 at 10:12; Status DC Glycopyrrolate 1 mg STK-MED ONCE .ROUTE; Start 10/30/24 at 10:12; Stop 10/30/24 at 10:12; Status DC Ondansetron HCl 4 mg STK-MED ONCE .ROUTE; Start 10/30/24 at 10:12; Stop 10/30/24 at 10:12; Status DC Propofol 200 mg STK-MED ONCE IV; Start 10/30/24 at 10:12; Stop 10/30/24 at 10:12; Status DC Neostigmine Methylsulfate 10 mg STK-MED ONCE IV; Start 10/30/24 at 10:12; Stop 10/30/24 at 10:12; Status DC Succinylcholine Chloride 200 mg STK-MED ONCE .ROUTE; Start 10/30/24 at 10:12; Stop 10/30/24 at 10:12; Status DC Midazolam HCl 2 mg STK-MED ONCE .ROUTE; Start 10/30/24 at 10:12; Stop 10/30/24 at 10:12; Status DC Rocuronium [place] 50 mg STK-MED ONCE .ROUTE; Start 10/30/24 at 10:12; Stop 10/30/24 at 10:13; Status DC Fentanyl Citrate 100 mcg STK-MED ONCE .ROUTE; Start 10/30/24 at 10:13; Stop 10/30/24 at 10:13; Status DC Fentanyl Citrate 100 mcg STK-MED ONCE .ROUTE; Start 10/30/24 at 11:50; Stop 10/30/24 at 11:51; Status DC Indocyanine Green 25 mg STK-MED ONCE IJ Last administered on 10/30/24at 10:15; Start 10/30/24 at 10:15; Stop 10/30/24 at 12:57; Status DC Bupivacaine HCl 50 mg STK-MED ONCE INJ Last administered on 10/30/24at 11:05; Start 10/30/24 at 11:05; Stop 10/30/24 at 12:57; Status DC Iopamidol 11 ml STK-MED ONCE IV Last administered on 10/30/24at 11:30; Start 10/30/24 at 11:30; Stop 10/30/24 at 12:57; Status DC Ibuprofen 800 mg Q8H PO Last administered on 10/31/24at 06:27; Start 10/30/24 at 13:30; Stop 11/29/24 at 13:29 YUNI BANSAL MD Oct 31, 2024 11:32
[2024-10-31] MEDS ORDERED: AMOX1TAB16 PO (11:39)
[2024-10-31 12:00] VITALS: BP 118/64; PULSE 71; RESP 18; TEMP 97.8
[2024-10-31 16:00] VITALS: BP 124/78; PULSE 79; RESP 18; TEMP 97.9
--- NOTE | 2024-10-31 18:45 | NUR ---
PATIENT DISCHARGED. IV REMOVED INTACT. ALL BELONGINGS GATHERED AND TAKEN BY PATIENT. PATIENT REQUESTING STRONGER PAIN MEDICATION OTHER FOR A FEW DAY POST DISCHARGE. CONTACTED DR BANSAL, AND WAS TOLD TO CONTACT PRIMARY TO PRESCRIBE MEDS. RECEIVED ORDERS FOR TRAMADOL 50 MG PO Q 6 HOURS FOR PAIN FROM SHAYY OLVERA [employer] TECHNICIAN TO CALL INTO [facility]. PHARMACY REFUSING TO FILL PRESCRIPTION WITH ONLY [employer] TECHNICIAN AALIYAH#. REQUESTING SUPERVISING PROVIDER AALIYAH # WELL. PER MAY TRUJILLO, PATIENT TO ALTERNATE OTC MOTRIN AND TYLENOL FOR PAIN AND CALL OR VISIT PCP OR SURGERY OUTPATIENT TO RECEIVE PRESCRIPTION. EXPLAINED TO PATIENT AND PATIENT VERBALIZED UNDERSTANDING.
--- NOTE | 2024-11-01 08:35 | DS ---
Discharge Summary Hospital Course Summary: Date of service 10/31/2024 The patient admitted to the hospital October 29, 2024 with the following history of the present illness: This is a 44-year-old male presents in ED with chief complaints of abdominal pain. Onset started earlier this morning 1:00 a.m. location right upper quad state 10/10 on pain scale severity severe aggravating factors p.o. intake aggravating factors none associated symptoms reports nausea and vomiting. Denies fever chills diarrhea. the patient reports being on Wegovy weekly: dose has been decreased: He reports has be on Wegovy for over a year: patient use to weigh 318 pounds down to 197pounds over in one year. He reports he is off of medication for diabetes hypertension and hyperlipidemia. ER workup was consistent with acute cholecystitis with stone to the neck of gallbladder. General surgeon consulted Hospital course 10/30/2024. Patient was seen and examined along with RN. He had his laparoscopic cholecystectomy done today. Day 0 . No new complaints.] 10/31 patient is seen and examined at bedside, discussed with the RN, no acute events overnight, status post laparoscopic cholecystectomy, day one, no acute complaints, tolerating diet, no nausea, no vomiting, no abdominal discomfort. Plan for the patient to be discharged home. Injury/Safety Hazard Assessment(s): General surgeon Procedure(s): Status post laparoscopic cholecystectomy 10/30/2024 Assessment/Plan: Five Diagnosis Acute cholecystitis POA Status post laparoscopic cholecystectomy 10/30/2024 Impacted gallstone with markedly distended gallbladder, POA Intractable abdominal pain requiring IV pain medication POA Discharge Instructions: Patient advised to follow up with her PCP and General surgery in one week, return to hospital if condition changes, patient agreed with plan and understood the information provided. Home Medications: Active Scripts Amoxicillin/Potassium Clav (Amox Tr-K Clv 875-125 mg Tab) 875 Mg-125 Mg Tablet, 1 TAB PO BID for 7 Days, #14 TAB 0 Refills Prov:MELLY RUEDA MD 10/31/24 Reported Medications Alprazolam (Alprazolam) 0.5 Mg Tablet, 1 TAB PO BID PRN for ANXIETY/AGITATION 10/29/24 Time spent arranging discharge: 31-60 minutes MELLY RUEDA MD Nov 01, 2024 08:35
--- NOTE | 2024-11-04 12:41 | HMCIMG ---
INTRAOPERATIVE CHOLANGIOGRAM INDICATION: OR laparoscopic cholecystectomy TECHNIQUE: Two matrix spot films submitted using the C-arm for intraoperative laparoscopic cholangiogram. COMPARISON: None FINDINGS: Fluoroscopy time 0.55 minutes. 5 cc of Omnipaque 350 was injected. A catheter is seen entering the cystic duct. Surgical clips are present in the gallbladder fossa. Contrast fills the common hepatic and common bile duct with normal flow of the contrast into the duodenal sweep without evidence of obstruction, strictures or choledocholithiasis. Contrast is also present in the proximal right and left hepatic ducts. IMPRESSION: Normal intraoperative cholangiogram as reported.
== END 2024-10-31 18:45 | disposition home or self-care (01) ==
LOC: EDH 07:25 → EDHIP 10:28 → INTOOBSV 10:28 → 3CH 11:50
PROVIDERS: ADMIT Internal Medicine; ATTEND Internal Medicine
DX: K80.12 Calculus of gallbladder with acute and chronic cholecystitis without obstruction (principal); E78.5 Hyperlipidemia, unspecified; E11.9 Type 2 diabetes mellitus without complications; I10 Essential (primary) hypertension; F41.9 Anxiety disorder, unspecified; Z79.899 Other long term (current) drug therapy; Z98.890 Other specified postprocedural states
CPT/HCPCS: 47563; S2900; 36415; 74178; 74300; 76705; 78226; 80048; 80053; 80076; 81001; 82948; 83605; 83690; 84145; 84484; 85025; 85027; 85610; 85730; 93005; 96365; 96366; 96374; 96375; 96376; 99285; A9537; G0378; J0330; J0696; J1100; J1171; J1885; J2250; J2270; J2371; J2405; J2704; J2710; J2795; J3010; J3480; J3490; J7030; J7120; Q9967; A4649; A4930; C1769; J0665